=== PATIENT | female | born 1945 | race Two or more races ===

== ENCOUNTER 2017-11-23 22:14 | Emergency (ER) | payer SELFPAY ==
[~2017-11-23] VITALS: Ht 154.9 cm; Wt 68.0 kg
--- NOTE | 2017-11-23 22:30 | NUR ---
Dr. Rogers at bedside for MSE.
[2017-11-23] MEDS ORDERED: TDAP DIPH,PERTUSS,TET VAC/PF 0.5 ML DISP.SYRIN IM ONE ×2 (22:45→22:47)
--- NOTE | 2017-11-23 22:54 | NUR ---
Patient discharged to home in stable conditon. Written and verbal after care instructions given. Patient verbalizes understanding of instructions. Pt ambulated out of ER with steady gait, no acute signs of distress, VSS, all belongings taken.
[2017-11-23 22:58] VITALS: BP 109/72
== END 2017-11-23 22:59 | disposition home or self-care (01) ==
LOC: ER 22:15
DX: S51.851A Open bite of right forearm, initial encounter (principal); L08.9 Local infection of the skin and subcutaneous tissue, unspecified; L03.113 Cellulitis of right upper limb; E78.5 Hyperlipidemia, unspecified; Z88.0 Allergy status to penicillin; Z88.2 Allergy status to sulfonamides; W55.01XA Bitten by cat, initial encounter; Y93.89 Activity, other specified; Y92.89 Other specified places as the place of occurrence of the external cause; Y99.8 Other external cause status
CPT/HCPCS: 90715; A4663

== ENCOUNTER 2021-10-17 18:41 | Emergency (ER) | payer OTHER ==
[~2021-10-17] VITALS: Ht 154.9 cm; Wt 61.7 kg
--- NOTE | 2021-10-17 19:25 | NUR ---
Dr. Woo at bedside for MSE.
[2021-10-17] MEDS ORDERED: HYDROMORPHONE 1 MG/1 ML DISP.SYRIN ONE (19:36)
[2021-10-17] MEDS ORDERED: ONDANSETRON 4 MG/2 ML VIAL ONE (19:36)
[2021-10-17] MEDS ORDERED: ONDANSETRON 4 MG/2 ML VIAL IV ONE (19:45)
[2021-10-17] MEDS ORDERED: HYDROMORPHONE 1 MG/1 ML DISP.SYRIN IV ONE (19:45)
[2021-10-17] MEDS ORDERED: HYDR-3980 PO (20:12)
[2021-10-17] MEDS ORDERED: ONDA4TAB5 PO (20:12)
--- NOTE | 2021-10-17 20:22 | NUR ---
Patient discharged to home in stable condition. Written and verbal after care instructions given. Patient verbalizes understanding of instructions. Stressed follow up or return to ER for worsening s/s. Patient out of ER with steady gait, no acute signs of distress, VSS, all belongings taken, IV site discontinued, to be driven home by daughter via private vehicle.
[2021-10-17 20:23] VITALS: BP 148/66
== END 2021-10-17 20:24 | disposition home or self-care (01) ==
LOC: ER 19:43
DX: G43.909 Migraine, unspecified, not intractable, without status migrainosus (principal); E78.00 Pure hypercholesterolemia, unspecified; Z86.39 Personal history of other endocrine, nutritional and metabolic disease; M19.90 Unspecified osteoarthritis, unspecified site; R03.0 Elevated blood-pressure reading, without diagnosis of hypertension; Z88.0 Allergy status to penicillin; Z88.2 Allergy status to sulfonamides
CPT/HCPCS: 96374; 96375; 99284; J1170; J2405; A4663